=== PATIENT | male | born 1985 | race Caucasian/White ===

== ENCOUNTER 2019-04-26 12:26 | Emergency (ER) | payer OTHER ==
[~2019-04-26] VITALS: Ht 165.1 cm; Wt 68.0 kg
[2019-04-26] MEDS ORDERED: PREDNISONE50 MG PO (13:49)
== END 2019-04-26 13:54 | disposition home or self-care (01) ==
LOC: ED 12:26
DX: T63.441A Toxic effect of venom of bees, accidental (unintentional), initial encounter (principal); H57.89 Other specified disorders of eye and adnexa; Y92.89 Other specified places as the place of occurrence of the external cause